=== PATIENT | male | born 1990 | race Caucasian/White ===

== ENCOUNTER 2017-08-31 09:48 | Emergency (ER) | payer OTHER, SELFPAY | END 2017-08-31 13:14 | disposition home or self-care (01) | PROVIDERS: Emergency Provider Emergency Medicine; Family Provider Pediatrics; Visit Provider Emergency Medicine | DX: N23 Unspecified renal colic (principal); R31.9 Hematuria, unspecified; B18.2 Chronic viral hepatitis C; Z72.52 High risk homosexual behavior; J45.909 Unspecified asthma, uncomplicated; F17.210 Nicotine dependence, cigarettes, uncomplicated | CPT/HCPCS: 74176; 80053; 81001; 82150; 83690; 85025; 85610; 85730 ==